=== PATIENT | male | born 1990 | race Caucasian/White ===

== ENCOUNTER 2021-08-05 06:04 | Emergency (ER) | payer OTHER, MEDICAID, SELFPAY ==
[2021-08-05 06:12] VITALS: BP 135/86; PULSE 127; RESP 16; TEMP 36.8; O2SAT 100
--- NOTE | 2021-08-05 06:15 | DI.RAD.S_ITS ---
PROCEDURE: XR CHEST 1V INDICATIONS: chest pain TECHNIQUE: One view of the chest was acquired. COMPARISON: [facility], , CHEST 2 VIEW, 02/25/2009, 21:33. FINDINGS: Surgical changes and devices: None. Lungs and pleura: Lungs are clear. No pleural effusions or pneumothorax. Mediastinum: Mediastinal contours appear normal. Heart size is normal. Bones and chest wall: No suspicious bony lesions. Overlying soft tissues appear unremarkable. IMPRESSION: No acute cardiopulmonary disease. No significant discrepancy with the machinist 2nd shift radiology preliminary report. Dictated by: Precious Pat M.D. on 08/05/2021 at 7:37 Approved by: Precious Pat M.D. on 08/05/2021 at 7:38
[2021-08-05 06:20] VITALS: PULSE 119; RESP 21; O2SAT 100
[2021-08-05 06:30] VITALS: PULSE 99; O2SAT 99
--- NOTE | 2021-08-05 06:35 | PC.NURSE ---
Patient is anxious about being in ER. Reports Meth use, intermittent sharp chest pain over last 6 months. Patient states pain will make him double over, sometimes short sometimes last longer.
--- NOTE | 2021-08-05 06:37 | PC.NURSE ---
While setting up and speaking with patient about starting an IV, patient became increasingly anxious, pale, clammy and states I am going to pass out I hate needles, I can't do it Patient heart rate went from sinus tach 120's down to 45. Patient remained alert, MD at bedside, discussing plan of care. Declining IV at this time
--- NOTE | 2021-08-05 06:38 | ED_ITS ---
HPI - Chest Pain General Chief Complaint: Chest Pain Stated Complaint: chest pain Time Seen by Provider: 08/05/21 06:11 Source: patient Mode of arrival: Ambulatory History of Present Illness HPI narrative: 30-year-old gentleman with history of methamphetamine use disorder getting more concerning over the last year. No other significant medical issues. His reports that he will frequently have episodes of severe chest pain after using methamphetamine sometimes about enough that he is doubled over in pain. 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 Today he smoked and again experience the severe chest pain and presented to the emergency department. Initially describing sharp stabbing pain through the center of his chest that has completely resolved by the time he is in a room and EKG is obtained. He is tachycardic, mildly diaphoretic, dilated pupils anxious but cooperative. He denies any recent fevers, cough, dyspnea or orthopnea, vomitin g, diarrhea, abdominal pain. He notes that he has been using more methamphetamine is having more anxiety and more frequent episodes of these chest pains. Related Data Allergies Allergy/AdvReac Type Severity Reaction Status Date / Time bupropion [From Wellbutrin] Allergy Rash Verified 08/05/21 06:14 Review of Systems Review of Systems Narrative: Remainder of complete review of systems is otherwise unremarkable except for that included in the HPI. Patient History Medical History (Updated 08/05/21 @ 07:05 by Hien Gill MD) Methamphetamine use disorder, severe Social History Smoking Status: Current every day smoker Smoking Status: Current every day smoker Substance Use Type: methamphetamine Exam Narrative Exam Narrative: General: Moderately ill-appearing, diaphoretic with the thought of an IV start, Well-nourished well-developed HEENT: Moist mucous membranes, erythematous posterior pharynx without exudate, injected sclera with reactive pupils, Respiratory: Lungs are clear to auscultation, no wheezing no rales no rhonchi. Full and symmetrical air movement Cardiac: Tachycardic but otherwise Regular rate and rhythm no murmurs no bruits Abdomen: Soft, nontender, good bowel tones, no flank pain Skin: Pale and diaphoretic Neurologic: Grossly neurologically intact with no obvious asymmetries or abnormalities Extremities: No trauma, well perfused Psych: Acutely intoxicated, anxious, poor eye contact Significant vasovagal reaction with the thought of blood draw/IV start Initial Vital Signs Initial Vital Signs: Vital Signs Temperature 98.3 F 08/05/21 06:12 Pulse Rate 127 H 08/05/21 06:12 Respiratory Rate 16 08/05/21 06:12 Blood Pressure 135/86 08/05/21 06:12 Pulse Oximetry 100 08/05/21 06:12 Course Orders Ordered: ED Orders 08/05/21 06:15 XR chest 1V Stat Complete Blood Count AUTO DIFF Stat Comprehensive Metabolic Panel Stat Lipase Stat Troponin & CK Cardiac Panel Stat EKG-12 Lead Stat Vital Signs Vital signs: Vital Signs - 8 hr 08/05/21 06:12 Temperature 98.3 F Pulse Rate 127 H Respiratory Rate 16 Blood Pressure 135/86 Pulse Oximetry 100 MDM - Chest Pain MDM Narrative Medical decision making narrative: 30-year-old gentleman with a long history of methamphetamine use worsening over the last 2 years. Brought in by a friend for further evaluation however evaluation is limited by his absolute and utter phobia of needles. Quite literally has a vasovagal reaction drops his heart rate to 50 and becomes profusely diaphoretic as a nurse simply sits down begins to prepare the IV supplies. EKG shows tachycardia but no acute ischemic changes. Chest x-ray is unremarkable without evidence of significant cardiomegaly or pneumothorax. We had a long discussion regarding those 2 findings and the fact that he is young enough and still healthy enough that stopping smoking will be of benefit and that he will be able to get his life back on track. The friend that is with him is already done quite a bit of research into treatment centers. Most them at this point require simply showing up for an initial evaluation and he has been unwilling to do that. After discussion he actually is much more willing to consider. He clearly understands the risks including associated with continued methamphetamine use. Discharge Plan Departure Patient Disposition: Home Clinical Impression: Methamphetamine use disorder, severe, Chest pain Instructions: Substance Use Disorder Activity Restrictions/Additional Instructions: I am glad you came in this morning Your EKG does not show an acute heart attack and your chest x-ray shows a normal-sized heart and lungs that are fully inflated without any significant abnormalities You are doing significant damage to your heart with your continued methamphetamine use. You are still young enough and healthy enough at this time that stopping using will get you back to a useful, healthy and reasonable life. If you do continue to use, you will . Addiction disorders are chronic progressive diseases that end in . Getting into a treatment program and getting away from methamphetamine is something you are absolutely capable of doing. Please let your friend help you and please choose to jump through the hoops that need to be jumped through to get to a treatment program. You can get your life back.
[2021-08-05 07:00] VITALS: PULSE 108; O2SAT 99
[2021-08-05 07:28] VITALS: BP 122/78; PULSE 100; RESP 18; O2SAT 100
== END 2021-08-05 07:33 | disposition home or self-care (01) ==
PROVIDERS: Emergency Provider Emergency Medicine
DX: R07.9 Chest pain, unspecified (principal); F15.90 Other stimulant use, unspecified, uncomplicated; R00.0 Tachycardia, unspecified
CPT/HCPCS: 71045; 93005; 93010; 99281; 99284

== ENCOUNTER 2023-04-03 19:22 | Emergency (ER) | payer OTHER, MEDICAID, SELFPAY ==
--- NOTE | 2023-04-03 19:37 | DI.RAD.S_ITS ---
PROCEDURE: XR ANKLE RT MIN 3V INDICATIONS: injury TECHNIQUE: 3 views of the ankle were acquired. COMPARISON: [facility], , ANKLE 3 VIEWS RIGHT, 03/30/2008, 11:13. FINDINGS: Bones: No fractures or dislocations. Ankle mortise is normally aligned. No suspicious bony lesions. Soft tissues: Moderate anterior tibiotalar joint effusion. Achilles tendon appears normal. IMPRESSION: Moderate tibiotalar joint effusion without underlying fracture or dislocation. If there are persistent symptoms or clinical suspicion for pathology, then repeat radiographs or advanced imaging (CT or MRI) may be considered for further evaluation. Dictated by: Garrett Joshi M.D. on 04/03/2023 at 21:09 Approved by: Garrett Joshi M.D. on 04/03/2023 at 21:11
[2023-04-03 19:38] VITALS: BP 133/77; PULSE 92; RESP 18; TEMP 36.6; O2SAT 100; BMI 20.9
--- NOTE | 2023-04-03 21:57 | ED.LOWEXIN ---
HPI - Extremity Injury (Lower) General Chief Complaint: Extremity Injury, Lower Stated Complaint: R ankle inj Time Seen by Provider: 04/03/23 20:03 Source: patient Mode of arrival: Wheelchair History of Present Illness HPI Narrative: 32-year-old male who is here for right ankle injury. 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 States he heard a pop. Has had difficulty walking since then. Does have swelling to his ankle. Is having some numbness to his foot. Related Data Previous Rx's Medication Instructions Recorded amoxicillin 875 mg-potassium 1 tab PO BID #20 tabs 01/29/23 clavulanate 125 mg tablet doxycycline hyclate 100 mg capsule 100 mg PO BID #20 caps 01/29/23 guaifenesin 600 mg tablet, 1,200 mg PO BID #30 tabs 01/29/23 extended release 12 hr nicotine 14 mg/24 hr daily 1 patch transdermal DAILY #14 ea 01/29/23 transdermal patch (Nicoderm CQ) nicotine 21 mg/24 hr daily 1 patch transdermal DAILY #28 ea 01/29/23 transdermal patch (Nicoderm CQ) nicotine 7 mg/24 hr daily 1 patch transdermal Q24H #14 ea 01/29/23 transdermal patch (Nicoderm CQ) Allergies Allergy/AdvReac Type Severity Reaction Status Date / Time bupropion [From Wellbutrin] Allergy Rash Verified 08/05/21 06:14 Review of Systems Constitutional Constitutional: Reports system reviewed and no additional complaints, except as documented Musculoskeletal Musculoskeletal: Reports system reviewed and no additional complaints, except as documented Integumentary/Breasts Skin/Breast: Reports system reviewed and no additional complaints, except as documented Neurologic Neurologic: Reports system reviewed and no additional complaints, except as documented Patient History Medical History Anxiety Carpal tunnel syndrome Eczema Methamphetamine use disorder, severe Restless leg syndrome Shoulder pain Social History Smoking Status: Current every day smoker Smoking Status: Current every day smoker Substance Use Type: methamphetamine Exam Initial Vital Signs Initial Vital Signs: Vital Signs Temperature 98 F 04/03/23 19:38 Pulse Rate 92 H 04/03/23 19:38 Respiratory Rate 18 04/03/23 19:38 Blood Pressure 133/77 04/03/23 19:38 Pulse Oximetry 100 04/03/23 19:38 Oxygen Delivery Method Room Air 04/03/23 19:38 Cardio Pulses: dorsalis pedis present on the right Skin General: no rashes or lesions noted Neuro Other: Reports decreased sensation to the dorsum of his right foot Extrem Other: Patient has swelling to his lateral malleolus. Tenderness to his lateral malleolus in his medial malleolus. No tenderness of the Achilles tendon. No tenderness of the base of the 5th metatarsal. Procedures Orthopedic Splinting/Casting Injury #1: Side: right Lower Extremity Injury Location: ankle Lower Extremity Immobilizer: Brenden wrap Post splinting neuro exam: no change Post splinting vascular exam: no change Placed by: Nursing Course Orders Ordered: ED Orders 04/03/23 19:37 XR ankle RT min 3V Stat Vital Signs Vital signs: Vital Signs - 8 hr 04/03/23 19:38 04/03/23 22:13 Temperature 98 F Pulse Rate 92 H 74 Respiratory Rate 18 Blood Pressure 133/77 126/69 Pulse Oximetry 100 100 Oxygen Delivery Method Room Air Room Air [facility] - Extremity Injury (Lower) Imaging Data Extremity x-ray #1: Radiologist's Impression: PROCEDURE:? XR ANKLE RT MIN 3V ? INDICATIONS:? injury ? TECHNIQUE:? 3 views of the ankle were acquired.? ? COMPARISON:? [facility], , ANKLE 3 VIEWS RIGHT, 03/30/2008, 11:13. ? FINDINGS:? ? Bones:? No fractures or dislocations.? Ankle mortise is normally aligned.? No suspicious bony lesions.? ? Soft tissues:? Moderate anterior tibiotalar joint effusion.? Achilles tendon appears normal.? ? ? IMPRESSION:? Moderate tibiotalar joint effusion without underlying fracture or dislocation. If there are persistent symptoms or clinical suspicion for pathology, then repeat radiographs or advanced imaging (CT or MRI) may be considered for further evaluation. [facility] Narrative Medical decision making narrative: No fractures or dislocations noted on the x-rays. I do suspect that the decreased sensation is because of the swelling. Had a discussion with him regarding this. He was given an Brenden bandage and also crutches. He can walk on his leg as tolerated. No fevers. We did discuss keeping his leg elevated. Discussed bruising that he could potentially have. He was given the expected course of treatment over the next week or so. Was given return precautions. He expressed understanding and agreement. Discharge Plan Departure Patient Disposition: Home Clinical Impression: Ankle sprain Instructions: DI for Ankle Sprain, How To Perform RICE (Rest, Ice, Compress, Elevate), How to Apply an Elastic Wrap on Ankle Activity Restrictions/Additional Instructions: There were no fractures on the x-ray. This means that you can walk on your foot/ankle as tolerated. You can use the crutches as needed. Contact your primary doctor for a follow-up. Return to the emergency department for new or worsening symptoms. You can take Tylenol or ibuprofen for any discomfort. Prescriptions: No Action nicotine [Nicoderm CQ] 21 mg/24 hr patch 24 hour 1 patch transdermal DAILY Qty: 28 1RF Rx Instructions: Apply daily for 6 weeks then decrease to lower dose nicotine [Nicoderm CQ] 14 mg/24 hr patch 24 hour 1 patch transdermal DAILY Qty: 14 0RF Rx Instructions: Apply daily x 2 weeks then reduce to 7mg dose nicotine [Nicoderm CQ] 7 mg/24 hr patch 24 hour 1 patch transdermal Q24H Qty: 14 0RF Rx Instructions: Apply daily for 1-2 weeks guaifenesin 600 mg tablet extended release 12hr 1,200 mg PO BID Qty: 30 0RF Rx Instructions: Max 4 tabs per day amoxicillin-pot clavulanate 875-125 mg tablet 1 tab PO BID Qty: 20 0RF doxycycline hyclate 100 mg capsule 100 mg PO BID Qty: 20 0RF Referrals: Luisa Larkin PA-C [Primary Care Provider] - Stand Alone Forms: Patient Portal/API, Work Release Note
[2023-04-03 22:13] VITALS: BP 126/69; PULSE 74; O2SAT 100
== END 2023-04-03 22:15 | disposition home or self-care (01) ==
PROVIDERS: Emergency Provider Emergency Medicine; PCP Physician Assistant
DX: S93.491A Sprain of other ligament of right ankle, initial encounter (principal); X50.1XXA Overexertion from prolonged static or awkward postures, initial encounter; Y93.89 Activity, other specified
CPT/HCPCS: 73610; 99282

== ENCOUNTER 2023-10-06 18:04 | Emergency (ER) | payer OTHER, MEDICAID, SELFPAY ==
[2023-10-06 18:15] VITALS: BP 133/85; PULSE 114; RESP 22; TEMP 37.1; O2SAT 99; BMI 22.2
--- NOTE | 2023-10-06 18:19 | DI.RAD.S_ITS ---
PROCEDURE: XR RIBS LT MIN 3V W CXR1V INDICATIONS: fall/pain TECHNIQUE: 2 views of the ribs were acquired, along with a single view chest. COMPARISON: None. FINDINGS: Surgical changes and devices: None. Bones and chest wall: No fractures or dislocations. No suspicious bony lesions. Overlying soft tissues appear unremarkable. Lungs and pleura: No pleural effusions or pneumothorax. Lungs appear clear. Mediastinum: Mediastinal contours appear normal. Heart size is normal. IMPRESSION: No displaced rib fracture or pneumothorax. Dictated by: Yung Stewart M.D. on 10/06/2023 at 18:50 Approved by: Yung Stewart M.D. on 10/06/2023 at 18:50
[2023-10-06] MEDS: ACETAMINOPHEN 325 MG TABLET 975 MG PO (18:22)
== END 2023-10-06 19:40 | disposition left against medical advice (07) ==
PROVIDERS: Emergency Provider Emergency Medicine; PCP Physician Assistant
DX: R07.81 Pleurodynia (principal); W19.XXXA Unspecified fall, initial encounter
CPT/HCPCS: 71101; 99283

== ENCOUNTER 2024-10-22 03:00 | Observation (INO) | payer OTHER, SELFPAY ==
[2024-10-22] VITALS (12 sets, daily range): BP systolic 98–131; BP diastolic 54–77; PULSE 68–110; RESP 14–20; TEMP 36.3–36.9; O2SAT 94–100
--- NOTE | 2024-10-22 03:24 | DI.CT.S_ITS ---
PROCEDURE: CT ABDOMEN PELVIS W CON INDICATIONS: LUQ pain TECHNIQUE: After the administration of intravenous contrast, axial sections acquired from the lung bases to the pubic symphysis. Coronal and sagittal reformats were performed. For radiation dose reduction, the following was used: automated exposure control, adjustment of mA and/or kV according to patient size. COMPARISON: None. FINDINGS: Image quality: Diagnostic. Lower Chest: No significant findings. ABDOMEN: Liver: No solid mass. Gallbladder: No radiopaque gallstones or wall thickening. Biliary ducts: No biliary dilation. Pancreas: No ductal dilation. Spleen: Size is within normal limits. Adrenal Glands: No adrenal nodules. Kidneys and Ureters: No hydronephrosis. No solid mass. No complex renal cystic lesion which requires follow up. Stomach and Bowel: Fluid-filled nondilated loops of small bowel. Normal colonic caliber, without significant wall thickening. Large stool burden. Normal appendix. Peritoneum: No abnormal intraperitoneal fluid. No free air. Ventral Wall: No significant ventral hernia. Abdominal Nodes: No retroperitoneal or mesenteric adenopathy by size criteria. Vessels: Aorta and inferior vena cava are normal in size. PELVIS: Pelvic Organs: Unremarkable. Bladder: No bladder wall thickening, accounting for underdistention. Pelvic Nodes: No enlarged lymph nodes. Miscellaneous: No inguinal hernias are seen. Bones: No aggressive osseous abnormality. IMPRESSION: 1. Large stool burden throughout the colon, correlate for constipation. 2. Nondilated fluid-filled loops of small bowel, nonspecific and may represent enteritis. Findings are concordant with preliminary interpretation provided by [facility]. Dictated by: Yung Stewart M.D. on 10/22/2024 at 7:31 Approved by: Yung Stewart M.D. on 10/22/2024 at 7:34
--- NOTE | 2024-10-22 03:27 | ED_ITS ---
HPI - Abdominal Pain General Chief Complaint: Abdominal Pain Stated Complaint: Lower abdominal pain x 4 days Time Seen by Provider: 10/22/24 03:18 Source: patient Mode of arrival: Ambulatory History of Present Illness HPI narrative: 33-year-old male with 4 days duration left upper quadrant abdominal pain, no history of trauma, no prior history of kidney stones, no dysuria or frequency of urination. No history of PUD, pancreatitis, colitis, diverticulitis, urinary tract infections, kidney stones. Denies cough shortness of breath. No skin rash changes. He has not tried any uejw-qoe-bmurvya medications. Denies use of alcohol. No black stools or red stools. Related Data Previous Rx's Medication Instructions Recorded amoxicillin 875 mg-potassium 1 tab PO BID #20 tabs 01/29/23 clavulanate 125 mg tablet doxycycline hyclate 100 mg capsule 100 mg PO BID #20 caps 01/29/23 guaifenesin 600 mg tablet, 1,200 mg (2 x 600 mg) PO BID #30 01/29/23 extended release 12 hr tabs nicotine 14 mg/24 hr daily 1 patch transdermal DAILY #14 ea 01/29/23 transdermal patch (Nicoderm CQ) nicotine 21 mg/24 hr daily 1 patch transdermal DAILY #28 ea 01/29/23 transdermal patch (Nicoderm CQ) nicotine 7 mg/24 hr daily 1 patch transdermal Q24H #14 ea 01/29/23 transdermal patch (Nicoderm CQ) Allergies Allergy/AdvReac Type Severity Reaction Status Date / Time bupropion [From Wellbutrin] Allergy Rash Verified 08/05/21 06:14 Patient History Medical History Anxiety Carpal tunnel syndrome Eczema Methamphetamine use disorder, severe Restless leg syndrome Shoulder pain Social History Smoking Status: Current every day smoker Smoking Status: Current every day smoker Exam Narrative Exam Narrative: GENERAL: Well-developed patient, in mild distress. HEAD: Atraumatic. Normocephalic. EYES: Pupils equal round and reactive. Extraocular motions intact. No scleral icterus. No injection or drainage. ENT: Nose without bleeding, purulent drainage. Throat without erythema, tonsillar hypertrophy or exudate. Airway patent. NECK: Trachea midline. Non tender CARDIOVASCULAR: Regular rate and rhythm without murmurs, gallops, or rubs. RESPIRATORY: Clear to auscultation. Breath sounds equal bilaterally. No wheezes, rales, or rhonchi. GASTROINTESTINAL: Abdomen soft, nondistended, mild tenderness left upper quadrant. No CVA region tenderness bilaterally. EXTREMITIES: No edema or joint tenderness. BACK: Nontender without deformity or crepitance. No flank tenderness. NEURO: AOx3. Motor functions grossly nonfocal SKIN: No rash or erythema of visible areas Initial Vital Signs Initial Vital Signs: Vital Signs Temperature 98.5 F 10/22/24 03:08 Pulse Rate 78 10/22/24 03:08 Respiratory Rate 17 10/22/24 03:08 Blood Pressure 131/70 10/22/24 03:08 Pulse Oximetry 100 10/22/24 03:08 Oxygen Delivery Method Room Air 10/22/24 03:08 Course Orders Ordered: ED Orders 10/22/24 03:24 CT abdomen pelvis w con Stat 10/22/24 03:30 Ammonia (NH3) Stat Complete Blood Count AUTO DIFF Stat Comprehensive Metabolic Panel Stat Ethanol (ETOH) Stat Lipase Stat Lipase Stat 10/22/24 04:55 Urinalysis and Microscopic Stat 10/22/24 05:45 Education, smoking cessation ONGOING 10/22/24 06:05 Complete Blood Count AUTO DIFF DAILY Comprehensive Metabolic Panel DAILY Acetaminophen (Acetaminophen 325 Mg Tablet) 650 mg PO Q6H PRN PRN Reason: Fever/Mild Pain (1-3) Hydrocodone Bitart/Acetaminophen (Hydrocodone/Acet 5/325 Tablet) 1 tab PO Q4H PRN PRN Reason: Pain, Moderate (4-6) Hydromorphone HCl (Hydromorphone 0.5 Mg Inj) 0.5 mg IV Q2H PRN PRN Reason: Pain, Severe (7-10) Sodium Chloride (Normal Saline 0.9%) 1,000 mls @ 150 mls/hr IV CONT KAMERON Naloxone HCl (Naloxone 0.4 Mg/Ml Vial) 0.2 mg IV Q2MIN PRN PRN Reason: Opiate Reversal Ondansetron HCl (Ondansetron 4 Mg/2 Ml Inj) 4 mg IV Q8HR PRN PRN Reason: Nausea And Vomiting Discontinued Medications Hydromorphone HCl (Hydromorphone 0.5 Mg Inj) 0.5 mg IV NOW ONE Stop: 10/22/24 03:26 Last Admin: 10/22/24 03:35 Dose: Not Given Documented By: CONCHA Ketorolac Tromethamine (Ketorolac 30 Mg/Ml Vial) 15 mg IV NOW ONE Stop: 10/22/24 03:36 Last Admin: 10/22/24 03:39 Dose: 15 mg Documented By: CONCHA Ondansetron HCl (Ondansetron 4 Mg/2 Ml Inj) 4 mg IV NOW ONE Stop: 10/22/24 03:26 Last Admin: 10/22/24 03:31 Dose: 4 mg Documented By: CONCHA Vital Signs Vital signs: Vital Signs - 8 hr 10/22/24 03:08 10/22/24 03:40 10/22/24 03:56 Temperature 98.5 F Pulse Rate 78 70 Respiratory Rate 17 Blood Pressure 131/70 98/72 Pulse Oximetry 100 94 Oxygen Delivery Method Room Air 10/22/24 03:56 10/22/24 04:00 10/22/24 04:00 Temperature Pulse Rate 110 H 91 H Respiratory Rate Blood Pressure 100/75 Pulse Oximetry 96 99 Oxygen Delivery Method 10/22/24 04:30 10/22/24 04:30 10/22/24 05:01 Temperature Pulse Rate 97 H 106 H Respiratory Rate Blood Pressure 100/69 Pulse Oximetry 98 98 Oxygen Delivery Method 10/22/24 05:30 Temperature Pulse Rate 94 H Respiratory Rate Blood Pressure Pulse Oximetry 99 Oxygen Delivery Method MDM - Abdominal Pain Lab Data Attestation: I reviewed the patient's lab results. Lab results narrative: White blood cell count 5900, hemoglobin 14.3, platelets [id number]. Basic metabolic panel unremarkable, glucose 107 noted. Lipase elevated 2864. Liver functions normal. Repeat lipase 3137 further elevated 10/22/24 06:05 10/22/24 03:30 Labs: Lab Results 10/22/24 10/22/24 10/22/24 Range/Units 03:30 03:30 04:55 WBC 5.9 (4.5-11.0) X10^3/uL RBC 4.67 (4.5-5.9) X10^6/uL Hgb 14.3 (13.5-17.5) g/dL Hct 41.0 (41-53) % MCV 87.8 (80-100) fL MCH 30.7 (26-34) PG MCHC 35.0 (30-36) % RDW 12.8 (11.6-14.8) % Plt Count 234 (150-400) X10^3/uL Neut % (Auto) 61.3 (50-75) % Lymph % (Auto) 27.9 (25-40) % [place] % (Auto) 9.6 (3-14) % Eos % (Auto) 0.9 L (2-4) % Baso % (Auto) 0.3 (0-2) % Neut # (Auto) 3600 (4185-3134) /uL Lymph # (Auto) 1600 (8143-8662) /uL [place] # (Auto) 600 (0-900) /uL Eos # (Auto) 100 (0-450) /uL Baso # (Auto) 0 (0-100) /uL Sodium 140 (137-145) mmol/L Potassium 3.7 (3.4-5.1) mmol/L Chloride 105 (98-107) mmol/L Carbon Dioxide 29 (22-32) mmol/L BUN 15 (9-20) mg/dL Creatinine 0.66 (0.66-1.25) mg/dL Estimated GFR > 60 (>60) mL/min BUN/Creatinine Ratio 22.7 H (6-22) Glucose 107 H (70-100) mg/dL Calcium 9.0 (8.4-10.2) mg/dL Total Bilirubin 0.2 (0.2-1.3) mg/dL AST 30 (17-59) IU/L ALT 26 (<50) IU/L Alkaline Phosphatase 82 (38-126) U/L Ammonia 20 (9-30) umol/L Total Protein 7.1 (6.3-8.2) g/dL Albumin 4.2 (3.5-5.0) g/dL Globulin 2.9 (1.7-4.1) g/dL Albumin/Globulin Ratio 1.4 (1.0-2.8) Lipase 2864 H 3137 H (23-300) U/L Urine Color Yellow Urine Appearance Clear Urine pH 8.0 (4.5-8.0) Ur Specific [place] 1.010 (1.000-1.035) Urine Protein Negative (Negative) Urine Glucose (UA) Negative (Negative) g/dL Urine Ketones Negative (NEGATIVE) Urine Occult Blood Negative (Negative) Urine Nitrate Negative (Negative) Urine Bilirubin Negative (NEGATIVE) Urine Urobilinogen 0.2 (0.2) E.U./dL Ur Leukocyte Esterase Negative (NEGATIVE) Urine RBC None seen (0-5/HPF) Urine WBC None seen (0-5/HPF) Ur Squamous Epith Cells None seen (0-5/HPF) Urine Bacteria None seen (None) Ur Culture Indicated? Cult not indicated Vol Urine Centrifuged 10ml (spun) Ethyl Alcohol < 10 ( - 10) mg/dL MDM Narrative Medical decision making narrative: 33-year-old male with 4 days duration left upper quadrant abdominal pain, no trauma, mild tenderness on examination. No CVA tenderness. Afebrile, sirs screen negative. DDx consider ureteral stone, pyelonephritis, UTI, colitis, diverticulitis, bowel obstruction, hernia, perforated viscus, PUD, pancreatitis, musculoskeletal, constipation, other. Labs pending. IV Toradol. White blood cell count not elevated, liver functions normal, however lipase is quite high at 2864. Keep NPO. CT abdomen and pelvis with IV contrast. Impressions: ?[id number]-[id number] amount of stool throughout the colon with likely superimposed mild enteritis. No findings to suggest obstruction or perforation.In text portions pancreas listed amongst ?unremarkable? solid organs. See radiology report. Lipase anemia markedly elevated, more so than would be expected with vomiting which has not been predominant. Consider admission, and consider waiting for over-read of daytime radiology services. Repeat serum lipase 3137 confirmed elevated, in fact further elevated. Will contact hospitalist. [id number], case discussed with hospitalist Dr. Tam who accepts patient for admission to inpatient Discharge Plan Departure Patient Disposition: Admitted As Inpatient Clinical Impression: Pancreatitis Admit Date/Time: 10/22/24 05:45 Admit Provider: Tuan Tam
[2024-10-22] MEDS: ONDANSETRON 4 MG/2 ML INJ IV ×3 (03:31→17:39)
[2024-10-22] MEDS: KETOROLAC 30 MG/ML VIAL 15 MG IV (03:39)
[2024-10-22 03:45] LABS: Add Manual Diff / Slide Review NO; Basophils Absolute Auto 0 /uL (0-100); Basophils Percent Auto 0.3 % (0-2); Eosinophils Absolute Auto 100 /uL (0-450); Eosinophils Percent Auto 0.9 % (2-4); Hemoglobin 14.3 g/dL (13.5-17.5); Lymphocytes Absolute Auto 1600 /uL (1100-4500); Lymphocytes Percent Auto 27.9 % (25-40); Mean Corpuscular Hemoglobin 30.7 PG (26-34); Mean Corpuscular Volume 87.8 fL (80-100); Monocytes Absolute Auto 600 /uL (0-900); Monocytes Percent Auto 9.6 % (3-14); Neutrophils Absolute Auto 3600 /uL (1500-7000); Neutrophils Percent Auto 61.3 % (50-75); Platelet Count 234 X10^3/uL (150-400); Red Blood Cell Count 4.67 X10^6/uL (4.5-5.9); Red Cell Distribution Width 12.8 % (11.6-14.8); White Blood Cell Count 5.9 X10^3/uL (4.5-11.0)
--- NOTE | 2024-10-22 03:46 | PC.NURSE ---
to CT per wc
[2024-10-22 03:54] LABS: Alanine Aminotransferase 26 IU/L (<50); Albumin 4.2 g/dL (3.5-5.0); Albumin Globulin Ratio 1.4 (1.0-2.8); Alkaline Phosphatase 82 U/L (38-126); Ammonia (NH3) 20 umol/L (9-30); Aspartate Aminotransferase 30 IU/L (17-59); BUN Creatinine Ratio 22.7 (6-22); Bilirubin Total 0.2 mg/dL (0.2-1.3); Blood Urea Nitrogen 15 mg/dL (9-20); Carbon Dioxide 29 mmol/L (22-32); Chloride 105 mmol/L (98-107); Estimated Glomerular Filt Rate > 60 mL/min (>60); Globulin 2.9 g/dL (1.7-4.1); Glucose 107 mg/dL (70-100); HEMOLYSIS < 15 (0-50); Potassium 3.7 mmol/L (3.4-5.1); Sodium 140 mmol/L (137-145); Total Protein 7.1 g/dL (6.3-8.2)
[2024-10-22 04:10] LABS: Lipase 2864 U/L (23-300)
[2024-10-22 05:04] LABS: Appearance Urine UA CLEAR; Bilirubin Urine UA NEGATIVE (NEGATIVE); Color Urine UA YELLOW; Glucose Urine UA NEGATIVE (Negative); Ketones Urine UA NEGATIVE (NEGATIVE); Leukocyte Esterase Urine UA NEGATIVE (NEGATIVE); Nitrite Urine UA NEGATIVE (Negative); Occult Blood Urine UA NEGATIVE (Negative); Protein Urine UA NEGATIVE (Negative); Urobilinogen Urine UA 0.2 E.U./dL (0.2)
[2024-10-22 05:08] LABS: Ethanol (ETOH) < 10 mg/dL
[2024-10-22 05:16] LABS: Lipase 3137 U/L (23-300)
[2024-10-22 05:19] LABS: Bacteria Urine None Seen; RBC Urine None Seen (0-5/HPF); Squamous Epithelial Cell Urine None Seen (0-5/HPF); Urine Volume 10mL (spun); WBC Urine None Seen (0-5/HPF)
[2024-10-22 05:20] LABS: Culture Indicated Urine Cult Not Indicated
[2024-10-22 06:10] LABS: Add Manual Diff / Slide Review NO; Basophils Absolute Auto 0 /uL (0-100); Basophils Percent Auto 0.5 % (0-2); Eosinophils Absolute Auto 100 /uL (0-450); Eosinophils Percent Auto 0.7 % (2-4); Hematocrit 41.1 % (41-53); Hemoglobin 14.5 g/dL (13.5-17.5); Lymphocytes Absolute Auto 1200 /uL (1100-4500); Lymphocytes Percent Auto 16.5 % (25-40); Mean Corpuscular HGB Conc 35.2 % (30-36); Mean Corpuscular Hemoglobin 30.7 PG (26-34); Mean Corpuscular Volume 87.3 fL (80-100); Monocytes Absolute Auto 400 /uL (0-900); Monocytes Percent Auto 5.2 % (3-14); Neutrophils Absolute Auto 5500 /uL (1500-7000); Neutrophils Percent Auto 77.1 % (50-75); Platelet Count 233 X10^3/uL (150-400); Red Blood Cell Count 4.71 X10^6/uL (4.5-5.9); Red Cell Distribution Width 12.8 % (11.6-14.8); White Blood Cell Count 7.1 X10^3/uL (4.5-11.0)
[2024-10-22 06:20] LABS: Alanine Aminotransferase 27 IU/L (<50); Albumin 4.1 g/dL (3.5-5.0); Albumin Globulin Ratio 1.4 (1.0-2.8); Alkaline Phosphatase 77 U/L (38-126); Aspartate Aminotransferase 30 IU/L (17-59); BUN Creatinine Ratio 22.4 (6-22); Bilirubin Total 0.2 mg/dL (0.2-1.3); Blood Urea Nitrogen 13 mg/dL (9-20); Calcium 8.7 mg/dL (8.4-10.2); Carbon Dioxide 26 mmol/L (22-32); Chloride 107 mmol/L (98-107); Estimated Glomerular Filt Rate > 60 mL/min (>60); Glucose 102 mg/dL (70-100); HEMOLYSIS 16 (0-50); Sodium 139 mmol/L (137-145); Total Protein 7.1 g/dL (6.3-8.2)
[2024-10-22] MEDS: SODIUM CHLORIDE 0.9% 1,000 ML 150 ML IV (06:40)
--- NOTE | 2024-10-22 06:45 | PM.HP.1 ---
History of Present Illness History of Present Illness Chief complaint: Lower abdominal pain x 4 days Narrative: 33 year old male with no reported past medical history of anxiety, Methamphetamine abuse, tobacco abuse and restless leg syndrome presents with abdominal pain. Per the patients'' report, the patient started to have abdominal pain that started about for days ago. The patient states that his pain was left upper quadrant, sharp and non-radiating. The patient denies any use of alcohol and denies any prior history of gallstones and pancreatitis. The patient also denies any trauma to his abdomen. Denies any fever, chills, dysurria, chest pain, shortness of breath, GIB, diarrhea or coughing. In our ER, the patient was hemodynamically stable. Labs were all benign except for lipast of 2864 and repeat was 3000s. CT scan however does clearly shows signs of acute pancreatitis but rather possible eneteritis. LFTs including bilirubin are normal. The patient was given IVF and IV pain medications. [facility] Medical History Anxiety Carpal tunnel syndrome Eczema Methamphetamine use disorder, severe Restless leg syndrome Shoulder pain Social History household members: significant other and children Smoking Status: Current every day smoker alcohol intake: former Meds Home Medications and Allergies Home Medications Medication Instructions Recorded Confirmed Type amoxicillin 875 mg-potassium 1 tab PO BID #20 tabs 01/29/23 01/29/23 Rx clavulanate 125 mg tablet doxycycline hyclate 100 mg capsule 100 mg PO BID #20 caps 01/29/23 01/29/23 Rx guaifenesin 600 mg tablet, 1,200 mg (2 x 600 mg) PO BID #30 01/29/23 01/29/23 Rx extended release 12 hr tabs nicotine 14 mg/24 hr daily 1 patch transdermal DAILY #14 ea 01/29/23 01/29/23 Rx transdermal patch (Nicoderm CQ) nicotine 21 mg/24 hr daily 1 patch transdermal DAILY #28 ea 01/29/23 01/29/23 Rx transdermal patch (Nicoderm CQ) nicotine 7 mg/24 hr daily 1 patch transdermal Q24H #14 ea 01/29/23 01/29/23 Rx transdermal patch (Nicoderm CQ) Allergies Allergy/AdvReac Type Severity Reaction Status Date / Time bupropion [From Wellbutrin] Allergy Rash Verified 08/05/21 06:14 Review of Systems Review of Systems ROS: Yes All systems reviewed with the patient and are negative except as otherwise documented Exam Vital Signs (past 8 hours): - 10/22/24 03:08 10/22/24 03:40 10/22/24 03:56 Temperature 98.5 F Pulse Rate 78 70 Respiratory Rate 17 Blood Pressure 131/70 98/72 Pulse Oximetry 100 94 Oxygen Delivery Method Room Air 10/22/24 03:56 10/22/24 04:00 10/22/24 04:00 Temperature Pulse Rate 110 H 91 H Respiratory Rate Blood Pressure 100/75 Pulse Oximetry 96 99 Oxygen Delivery Method 10/22/24 04:30 10/22/24 04:30 10/22/24 05:01 Temperature Pulse Rate 97 H 106 H Respiratory Rate Blood Pressure 100/69 Pulse Oximetry 98 98 Oxygen Delivery Method 10/22/24 05:30 10/22/24 06:00 10/22/24 06:01 Temperature Pulse Rate 94 H 68 79 Respiratory Rate Blood Pressure Pulse Oximetry 99 99 99 Oxygen Delivery Method Room Air 10/22/24 06:01 Temperature Pulse Rate Respiratory Rate Blood Pressure 129/65 Pulse Oximetry Oxygen Delivery Method Oxygen Delivery Method Room Air Narrative Exam Narrative: Physical Exam: GENERAL: The patient is not in any acute distressed. Awake and alert. HEENT: Nonicteric sclerae, PERRLA, EOMI. Oropharynx clear. Moist mucous membranes. Conjunctivae appear well perfused. HEART: Regular rate and rhythm without murmurs. No lower extremities edema. LUNGS: Clear to auscultation bilaterally. No wheezing, crackles or rhonchi ABDOMEN: Soft, positive bowel sounds, nontender. SKIN: No rash, no excessive bruising, petechiae, or purpura. NEUROLOGIC: AxO x 3. Cranial nerves II-XII intact without motor/sensory deficit. Objective Labs 10/22/24 06:05 10/22/24 06:05 Labs: Laboratory Results - last 24 hr 10/22/24 10/22/24 10/22/24 03:30 03:30 04:55 WBC 5.9 RBC 4.67 Hgb 14.3 Hct 41.0 MCV 87.8 MCH 30.7 MCHC 35.0 RDW 12.8 Plt Count 234 Neut % (Auto) 61.3 Lymph % (Auto) 27.9 [place] % (Auto) 9.6 Eos % (Auto) 0.9 L Baso % (Auto) 0.3 Neut # (Auto) 3600 Lymph # (Auto) 1600 [place] # (Auto) 600 Eos # (Auto) 100 Baso # (Auto) 0 Sodium 140 Potassium 3.7 Chloride 105 Carbon Dioxide 29 BUN 15 Creatinine 0.66 Estimated GFR > 60 BUN/Creatinine Ratio 22.7 H Glucose 107 H Calcium 9.0 Total Bilirubin 0.2 AST 30 ALT 26 Alkaline Phosphatase 82 Ammonia 20 Total Protein 7.1 Albumin 4.2 Globulin 2.9 Albumin/Globulin Ratio 1.4 Lipase 2864 H 3137 H Urine Color Yellow Urine Appearance Clear Urine pH 8.0 Ur Specific [place] 1.010 Urine Protein Negative Urine Glucose (UA) Negative Urine Ketones Negative Urine Occult Blood Negative Urine Nitrate Negative Urine Bilirubin Negative Urine Urobilinogen 0.2 Ur Leukocyte Esterase Negative Urine RBC None seen Urine WBC None seen Ur Squamous Epith Cells None seen Urine Bacteria None seen Ur Culture Indicated? Cult not indicated Vol Urine Centrifuged 10ml (spun) Ethyl Alcohol < 10 10/22/24 06:05 WBC 7.1 RBC 4.71 Hgb 14.5 Hct 41.1 MCV 87.3 MCH 30.7 MCHC 35.2 RDW 12.8 Plt Count 233 Neut % (Auto) 77.1 H Lymph % (Auto) 16.5 L [place] % (Auto) 5.2 Eos % (Auto) 0.7 L Baso % (Auto) 0.5 Neut # (Auto) 5500 Lymph # (Auto) 1200 [place] # (Auto) 400 Eos # (Auto) 100 Baso # (Auto) 0 Sodium 139 Potassium 4.0 Chloride 107 Carbon Dioxide 26 BUN 13 Creatinine 0.58 L Estimated GFR > 60 BUN/Creatinine Ratio 22.4 H Glucose 102 H Calcium 8.7 Total Bilirubin 0.2 AST 30 ALT 27 Alkaline Phosphatase 77 Ammonia Total Protein 7.1 Albumin 4.1 Globulin 3.0 Albumin/Globulin Ratio 1.4 Lipase Urine Color Urine Appearance Urine pH Ur Specific [place] Urine Protein Urine Glucose (UA) Urine Ketones Urine Occult Blood Urine Nitrate Urine Bilirubin Urine Urobilinogen Ur Leukocyte Esterase Urine RBC Urine WBC Ur Squamous Epith Cells Urine Bacteria Ur Culture Indicated? Vol Urine Centrifuged Ethyl Alcohol Assessment & Plan Assessment & Plan narrative: Acute pancreatitis. Admit the patient to medical inpatient. Idiopathic as patient denies any alcohol use, normal LFTs including bilirubin. Not on any medications that can induced pancreatitis. Denies any blunt trauma. NPO. IVF. IV pain medications prn. Dehydration. IVF. Tobacco abuse. Nicotine patch DVT PPx SCDs and ambulation Code status full code Disposition home in 2 days Time-Based Coding :: [TOTAL MINUTES] spent with patient and on the chart (including review of chart, obtaining history, exam, reviewing outside data, placing orders, documenting exam and treatment plan, and counseling patient) on [DATE]. Quality VTE Deep Vein Thrombosis/Pulmonary Embolism Present on Admission: No
[2024-10-22] MEDS: METOCLOPRAMIDE 10 MG/2 ML INJ 5 MG IV (08:42)
[2024-10-22] MEDS: SENNOSIDES 8.6 MG TABLET 17.2 MG PO (08:42)
[2024-10-22] MEDS: BISACODYL 10 MG SUPP PR (08:42)
[2024-10-22] MEDS: MAGNESIUM HYDROXIDE 30 ML UDC PO ×3 (11:18→18:40)
[2024-10-22] MEDS: NICOTINE 21 MG PATCH TOP (13:09)
--- NOTE | 2024-10-22 15:06 | CM.DANOTE ---
Patient is a 33 yo male who was admitted OBS Status on 10/22/24 for Constipation/Dehydration. [facility] and no PCP. EMR was reviewed. Per MD, pt with hx of cigarette smoking and meth use and admitted for severe constipation and ruled out pancreatitis and was given an enema and not yet stable for discharge. Per RN, pt has had a bm and has been ambulating in room independently. JOAO met bedside with pt and explained role and he confirms he lives in [place] in a 5th Wheel RV/camper with his Sig Other and her two kids. Pt is independent at baseline with mobility and does not use DME for ambulation and drives but states he is currently unemployed and does not have established PCP. Pt confirms that he would be appreciative with assistance in getting established with a Male Provider at [facility] for outpt f/u. SW updated TCM group to confirm if they have any male providers accepting PW HO for insurance. Pt denies any identified discharge planning needs and preference is home at discharge and states he will have family or friend to transport at d/c. MACY Nunn Discharge Planning/Care Management CM Discharge Assessment Start: 10/22/24 15:05 Freq: Status: Active Protocol: Document 10/22/24 15:05 BF (Rec: 10/22/24 15:06 BF [id number]) Discharge Planning Assessment Assigned Reconditioning Associate MACY Banegas DPOA/Assigned Designee Name none Advance Directives? No Advance Directives on File No History Provided By Patient,Medical Record Has Patient been admitted in last 30 No days? Prior Living Arrangements Other Comment 5th wheel Trailer; 4 occupants Household Members significant other,children Type of transporation used prior to Drives own vehicle admit Independent with ADL's Yes Is patient alert and oriented? Yes Caregiver for Another Yes: two kids at home Barriers to Discharge Yes Comment Needs PCP established Discharge Plan Home Transportation Arrangement Pt states his family can provide transport at d/c Referrals Initiated Other Additional Comment TCM group to be notified to try to schedule establish care appt with Provider at [facility] Updated in Patient Room with Yes name and ext. # of Reconditioning Associate Review Status In Process Please Provide Date Initial DC 10/22/24 Assessment Was Performed Next Review Type Continued Stay Review
--- NOTE | 2024-10-22 18:44 | PM.PN.1 ---
Subjective Subjective Interval history: 33-year-old male with history of anxiety, methamphetamine abuse now in remission, tobacco dependence, and restless legs syndrome presented with mild left upper quadrant pain. He was found to have an elevated lipase in the 3000 range, but CT scan showed no evidence of pancreatic inflammation. He did have some nausea and dry heaving after arrival to the medical floor. He denied any nausea or vomiting prior to admission. He states he has not had a very good diet recently due to financial difficulties. He reports he typically moves his bowels every day. He has not had any epigastric pain. No pain radiating to his back. CT scan did show a large amount of stool throughout the colon. There was also some evidence of possible enteritis. Exam Vital Signs (past 8 hours): - 10/22/24 12:00 Temperature 97.3 F L Pulse Rate 80 Respiratory Rate 14 Blood Pressure 123/60 Pulse Oximetry 98 Oxygen Flow Rate 0 Oxygen Delivery Method Room Air Oxygen Flow Rate 0 Narrative Exam Narrative: GEN: Alert and oriented x 3, patient was dry heaving on my arrival. HEENT:NC, Face symmetric CHEST: Respiratory excursions symmetric, CTAB CV: Tachycardic with regular rhythm, no M/R/G ABD: Soft, NT/ND, BT present in all 4 quadrants, no organomegaly or masses EXTR: warm, well perfused, no C/C/E SKIN: warm and dry, no rash NEURO: Alert and oriented x 3, nonfocal Objective Labs 10/22/24 06:05 10/22/24 06:05 Labs: Laboratory Results - last 24 hr 10/22/24 10/22/24 10/22/24 03:30 03:30 04:55 WBC 5.9 RBC 4.67 Hgb 14.3 Hct 41.0 MCV 87.8 MCH 30.7 MCHC 35.0 RDW 12.8 Plt Count 234 Neut % (Auto) 61.3 Lymph % (Auto) 27.9 [place] % (Auto) 9.6 Eos % (Auto) 0.9 L Baso % (Auto) 0.3 Neut # (Auto) 3600 Lymph # (Auto) 1600 [place] # (Auto) 600 Eos # (Auto) 100 Baso # (Auto) 0 Sodium 140 Potassium 3.7 Chloride 105 Carbon Dioxide 29 BUN 15 Creatinine 0.66 Estimated GFR > 60 BUN/Creatinine Ratio 22.7 H Glucose 107 H Calcium 9.0 Total Bilirubin 0.2 AST 30 ALT 26 Alkaline Phosphatase 82 Ammonia 20 Total Protein 7.1 Albumin 4.2 Globulin 2.9 Albumin/Globulin Ratio 1.4 Lipase 2864 H 3137 H Urine Color Yellow Urine Appearance Clear Urine pH 8.0 Ur Specific [place] 1.010 Urine Protein Negative Urine Glucose (UA) Negative Urine Ketones Negative Urine Occult Blood Negative Urine Nitrate Negative Urine Bilirubin Negative Urine Urobilinogen 0.2 Ur Leukocyte Esterase Negative Urine RBC None seen Urine WBC None seen Ur Squamous Epith Cells None seen Urine Bacteria None seen Ur Culture Indicated? Cult not indicated Vol Urine Centrifuged 10ml (spun) Ethyl Alcohol < 10 10/22/24 06:05 WBC 7.1 RBC 4.71 Hgb 14.5 Hct 41.1 MCV 87.3 MCH 30.7 MCHC 35.2 RDW 12.8 Plt Count 233 Neut % (Auto) 77.1 H Lymph % (Auto) 16.5 L [place] % (Auto) 5.2 Eos % (Auto) 0.7 L Baso % (Auto) 0.5 Neut # (Auto) 5500 Lymph # (Auto) 1200 [place] # (Auto) 400 Eos # (Auto) 100 Baso # (Auto) 0 Sodium 139 Potassium 4.0 Chloride 107 Carbon Dioxide 26 BUN 13 Creatinine 0.58 L Estimated GFR > 60 BUN/Creatinine Ratio 22.4 H Glucose 102 H Calcium 8.7 Total Bilirubin 0.2 AST 30 ALT 27 Alkaline Phosphatase 77 Ammonia Total Protein 7.1 Albumin 4.1 Globulin 3.0 Albumin/Globulin Ratio 1.4 Lipase Urine Color Urine Appearance Urine pH Ur Specific [place] Urine Protein Urine Glucose (UA) Urine Ketones Urine Occult Blood Urine Nitrate Urine Bilirubin Urine Urobilinogen Ur Leukocyte Esterase Urine RBC Urine WBC Ur Squamous Epith Cells Urine Bacteria Ur Culture Indicated? Vol Urine Centrifuged Ethyl Alcohol [facility] Medical History Anxiety Carpal tunnel syndrome Eczema Methamphetamine use disorder, severe Restless leg syndrome Shoulder pain Social History household members: significant other and children Smoking Status: Current every day smoker alcohol intake: former Assessment & Plan Assessment & Plan narrative: 1. Left upper quadrant pain Based on his clinical presentation, this is unlikely to be pancreatitis. His pain has been in the left upper quadrant, no epigastric pain, no radiation to his back. I do suspect some degree of enteritis along with his significant fecal load in the colon. As he was dry heaving on my arrival, will give a suppository 1st. Reglan was also ordered for his dry heaving. Will advance diet as able once his dry heaving has resolved in his bowels began moving. We will also start daily senna. May need to give additional bowel medicine as he is able to tolerate once his dry heaving resolves. Will monitor for any clinical symptoms or signs of pancreatitis. 2. Constipation As noted above. 3. Tobacco dependence Nicotine patch 4. History of methamphetamine dependence In remission 5. Anxiety Stable Code status Full Prophylaxis Low Pam score Disposition Possibly home tomorrow if clinically improving Time-Based Coding :: [TOTAL MINUTES] spent with patient and on the chart (including review of chart, obtaining history, exam, reviewing outside data, placing orders, documenting exam and treatment plan, and counseling patient) on [DATE]. Quality VTE Deep Vein Thrombosis/Pulmonary Embolism Present on Admission: No
[2024-10-22] MEDS: HYDROCODONE/ACET 5/325 TABLET 1 TAB PO (18:55)
[2024-10-23 04:00] VITALS: BP 118/66; PULSE 89; RESP 16; TEMP 36.2; O2SAT 98
[2024-10-23] MEDS: HYDROCODONE/ACET 5/325 TABLET 1 TAB PO ×3 (04:35→21:30)
[2024-10-23 05:03] LABS: Add Manual Diff / Slide Review NO; Basophils Absolute Auto 0 /uL (0-100); Basophils Percent Auto 0.1 % (0-2); Eosinophils Absolute Auto 100 /uL (0-450); Hematocrit 44.9 % (41-53); Hemoglobin 15.8 g/dL (13.5-17.5); Lymphocytes Absolute Auto 1400 /uL (1100-4500); Lymphocytes Percent Auto 23.1 % (25-40); Mean Corpuscular HGB Conc 35.2 % (30-36); Mean Corpuscular Volume 88.1 fL (80-100); Monocytes Absolute Auto 500 /uL (0-900); Monocytes Percent Auto 8.3 % (3-14); Neutrophils Absolute Auto 4200 /uL (1500-7000); Neutrophils Percent Auto 67.5 % (50-75); Platelet Count 251 X10^3/uL (150-400); Red Cell Distribution Width 12.7 % (11.6-14.8); White Blood Cell Count 6.2 X10^3/uL (4.5-11.0)
[2024-10-23 05:16] LABS: Alanine Aminotransferase 24 IU/L (<50); Albumin Globulin Ratio 1.3 (1.0-2.8); Alkaline Phosphatase 80 U/L (38-126); Aspartate Aminotransferase 28 IU/L (17-59); BUN Creatinine Ratio 17.6 (6-22); Bilirubin Total 0.6 mg/dL (0.2-1.3); Blood Urea Nitrogen 12 mg/dL (9-20); Calcium 8.8 mg/dL (8.4-10.2); Carbon Dioxide 27 mmol/L (22-32); Chloride 103 mmol/L (98-107); Estimated Glomerular Filt Rate > 60 mL/min (>60); Glucose 87 mg/dL (70-100); HEMOLYSIS < 15 (0-50); Lipase 800 U/L (23-300); Sodium 137 mmol/L (137-145)
[2024-10-23 08:00] VITALS: BP 107/65; PULSE 90; RESP 20; TEMP 36.1; O2SAT 100
[2024-10-23] MEDS: SENNOSIDES 8.6 MG TABLET 17.2 MG PO (08:24)
[2024-10-23] MEDS: NICOTINE 21 MG PATCH TOP (08:24)
--- NOTE | 2024-10-23 11:52 | CM.DPC ---
DCP COnt: Per MD, pt able to have a couple bowel movements and anticipated pt to be stable for discharge today and orders placed and then pt did not follow directives regarding easy to digest diet and had very large breakfast and now abdominal pains and returned to clear diet and discharge orders cancelled for this morning. MACY Nunn
--- NOTE | 2024-10-23 17:13 | PM.PN.1 ---
Subjective Subjective Interval history: 33-year-old male with history of anxiety, methamphetamine abuse now in remission, tobacco dependence, and restless legs syndrome presented with mild left upper quadrant pain. He did have an elevated lipase on admission (3137), but did not have any classic pancreatitis symptoms such as nausea, vomiting, epigastric pain radiating to the back. He did respond well yesterday to suppository and bowel regimen. He states he was able to eat dinner last night without much difficulty. He does state he felt slightly tight in his abdomen and full from eating but did not have any specific pain. He has not had any nausea or vomiting since my visit yesterday morning. He was hopeful to discharge home today. Exam Vital Signs (past 8 hours): Oxygen Delivery Method Room Air Oxygen Flow Rate 0 Narrative Exam Narrative: GEN: Adult male, pleasant, Alert and oriented x 3, NAD HEENT:NC, Face symmetric CHEST: Respiratory excursions symmetric, CTAB CV: RRR, no M/R/G ABD: Soft, NT/ND, BT present in all 4 quadrants, no organomegaly or masses EXTR: warm, well perfused, no C/C/E SKIN: warm and dry, no rash NEURO: Alert and oriented x 3, nonfocal Objective Labs 10/23/24 04:09 10/23/24 04:09 Labs: Laboratory Results - last 24 hr 10/23/24 04:09 WBC 6.2 RBC 5.10 Hgb 15.8 Hct 44.9 MCV 88.1 MCH 31.0 MCHC 35.2 RDW 12.7 Plt Count 251 Neut % (Auto) 67.5 Lymph % (Auto) 23.1 L [place] % (Auto) 8.3 Eos % (Auto) 1.0 L Baso % (Auto) 0.1 Neut # (Auto) 4200 Lymph # (Auto) 1400 [place] # (Auto) 500 Eos # (Auto) 100 Baso # (Auto) 0 Sodium 137 Potassium 4.0 Chloride 103 Carbon Dioxide 27 BUN 12 Creatinine 0.68 Estimated GFR > 60 BUN/Creatinine Ratio 17.6 Glucose 87 Calcium 8.8 Total Bilirubin 0.6 AST 28 ALT 24 Alkaline Phosphatase 80 Total Protein 7.0 Albumin 4.0 Globulin 3.0 Albumin/Globulin Ratio 1.3 Lipase 800 H D [facility] Medical History Anxiety Carpal tunnel syndrome Eczema Methamphetamine use disorder, severe Restless leg syndrome Shoulder pain Social History household members: significant other and children Smoking Status: Current every day smoker alcohol intake: former Assessment & Plan Assessment & Plan narrative: 1. Left upper quadrant pain Continuing to improve. Again, his clinical presentation was more consistent with constipation and enteritis than pancreatitis. He has done well with the bowel regimen which led to 3 BMs and advancing his diet slowly. Anticipate he will be able to discharge after breakfast. He is planning to eat cereal, [place] toast, and yogurt. Lipase improved and is down to 800 today. 2. Constipation Improved. Recommended he increase fiber in his diet, and add daily MiraLax. Recommended he stay hydrated. 3. Tobacco dependence Nicotine patch 4. History of methamphetamine dependence In remission 5. Anxiety Stable Code status Full Prophylaxis Low Apm score Disposition Anticipate discharge later this morning. Time-Based Coding :: [TOTAL MINUTES] spent with patient and on the chart (including review of chart, obtaining history, exam, reviewing outside data, placing orders, documenting exam and treatment plan, and counseling patient) on [DATE]. Quality VTE Deep Vein Thrombosis/Pulmonary Embolism Present on Admission: No
[2024-10-23 20:00] VITALS: BP 111/72; PULSE 79; RESP 20; TEMP 36.4; O2SAT 98
[2024-10-23] MEDS: ONDANSETRON 4 MG/2 ML INJ IV (21:21)
--- NOTE | 2024-10-23 21:35 | PC.NURSE ---
Addendum entered by Dominique Burk R.N. 10/24/24 00:01: Pt called reporting 7/10 pain, however too early for scheduled [place]. Offered pt prescribed PRN 0.5mg hydromorphone IV, but patient declined, stating I was hoping to avoid opiates. Educated pt on prescribed pain medication options. Pt declined and said he would call if he changed his mind. Plan of care ongoing. Addendum entered by Dominique Burk R.N. 10/23/24 22:33: Reassessed; pt currently sleeping, allowed to sleep. Plan of care ongoing. Original Note: NOC: Pt requested snacks, ate 1 of 2 jello cups, denies eating other food. Pt reporting 6/10 and then 7/10 epigastric pain (mostly L sided) and nausea. Administered prescribed IV 4mg Ondansetron and [place] 5/325 1 tab (see MAR). Pt reports 10 min later that nausea is subsiding but epigastric pain remains. Bowel sounds active x4, no rebound pain, no tenderness to palpation. Pt guarding and facial grimacing, states that sitting up improves pain, describes pain as tight and sharp. Plan of care ongoing.
[2024-10-24 05:09] LABS: Lipase 390 U/L (23-300)
[2024-10-24 07:00] VITALS: BP 117/63; PULSE 88; RESP 18; TEMP 36.2; O2SAT 99
--- NOTE | 2024-10-24 09:00 | PM.DS.1 ---
History of Present Illness History of Present Illness Chief complaint: Lower abdominal pain x 4 days Narrative: From H&P: 33 year old male with no reported past medical history of anxiety, Methamphetamine abuse, tobacco abuse and restless leg syndrome presents with abdominal pain. Per the patients'' report, the patient started to have abdominal pain that started about for days ago. The patient states that his pain was left upper quadrant, sharp and non-radiating. The patient denies any use of alcohol and denies any prior history of gallstones and pancreatitis. The patient also denies any trauma to his abdomen. Denies any fever, chills, dysurria, chest pain, shortness of breath, GIB, diarrhea or coughing. In our ER, the patient was hemodynamically stable. Labs were all benign except for lipast of 2864 and repeat was 3000s. CT scan however does clearly shows signs of acute pancreatitis but rather possible eneteritis. LFTs including bilirubin are normal. The patient was given IVF and IV pain medications. Discharge Providers Provider Date of admission: 10/22/24 05:45 Discharge Date: 10/24/24 Primary care physician: Luisa Larkin PA-C Consults: 10/22/24 06:[address] [facility] [place] Routine Comment: Vice President Consult needed for:: Unemployed Discharge provider: Manny Bansal MD Summary Hospital Course Discharge Diagnosis: 1. Left upper quadrant pain, resolved. Continuing to improve. Again, his clinical presentation was more consistent with constipation and enteritis than pancreatitis. He has done well with the bowel regimen which led to 3 BMs and advancing his diet slowly. Anticipate he will be able to discharge after breakfast. He is planning to eat cereal, [place] toast, and yogurt. Lipase improved and is down to 800 today. 2. Constipation, resolved. Improved. Recommended he increase fiber in his diet, and add daily MiraLax. Recommended he stay hydrated. 3. Tobacco dependence, active. Nicotine patch 4. History of methamphetamine dependence, not active. In remission 5. Anxiety, stable Hospital Course: He was admitted with constipation and this improved with a bowel program. He also had mild abdominal pain with a minimally elevated lipase. The patient was treated with a short period of bowel rest for possible pancreatitis and did improve relatively rapidly. In the day of discharge he felt at his baseline. He denies any use of alcohol, in his laboratories were otherwise unremarkable. He was felt to be stable for discharge home. Status at Discharge Cognitive/behavioral status at discharge: oriented Functional status at discharge: independent ambulation Overall status at discharge: patient is back to baseline Time Spent with Patient Time spent: Greater than 30 minutes Exam Vital Signs (past 8 hours): Oxygen Delivery Method Room Air Oxygen Flow Rate 0 Narrative Exam Narrative: NAD, alert and oriented. Fluent speech. Lungs are clear, normal rate and effort. Heart is regular, no murmur gallop or rub. Abdomen is soft, non distended. Extremities are free of edema. Objective Imaging CT scan - abdomen: Radiologist's impression: 1. Large stool burden throughout the colon, correlate for constipation. 2. Nondilated fluid-filled loops of small bowel, nonspecific and may represent enteritis. Labs 10/23/24 04:09 10/23/24 04:09 Labs: Laboratory Results - last 24 hr 10/24/24 04:24 Lipase 390 H D [facility] Medical History Eczema Anxiety Restless leg syndrome Shoulder pain Carpal tunnel syndrome Methamphetamine use disorder, severe Social History household members: significant other and children Smoking Status: Current every day smoker alcohol intake: former Discharge Assessment & Plan Assessment and Plan Assessment: 1. Left upper quadrant pain, resolved. Continuing to improve. Again, his clinical presentation was more consistent with constipation and enteritis than pancreatitis. He has done well with the bowel regimen which led to 3 BMs and advancing his diet slowly. Anticipate he will be able to discharge after breakfast. He is planning to eat cereal, [place] toast, and yogurt. Lipase improved and is down to 800 today. 2. Constipation, resolved. Improved. Recommended he increase fiber in his diet, and add daily MiraLax. Recommended he stay hydrated. Plan of Treatment: Discharge home, MiraLax on a daily basis. He was urged fine primary care and establish a follow up appointment within the next 2 weeks to have a recheck of his general status. Discharge Plan Discharge Plan Patient Disposition: Home Provider Discharge Comment: 1) Take daily Miralax (can be generic version) - if you develop loose stools, decrease to a half dose daily or a full dose every other day 2) Increase your fiber intake in your diet 3) Eat a low fat diet for the next week or so until you feel you have returned to your usual health Return to the ED for: Inability to hold down food/fluids Fevers/chills Increasing abdominal pain Discharge orders & Medications Prescriptions: New polyethylene glycol 3350 [Miralax] 17 gram/dose powder 17 g PO DAILY Qty: 238 0RF ondansetron 4 mg tablet,disintegrating 4 mg PO Q6H Qty: 20 0RF Follow up/Referrals: Luisa Larkin PA-C [Primary Care Provider] - Diet/Activity/Treatments Diet: Diet as Tolerated and Low-fat Activity: As tolerated Oxygen: N/A Visit Report/Discharge Packet Instructions: High-Fiber Diet, DI for Enteritis Stand Alone Forms: Patient Portal/API Discharge Data Primary Care Provider: Luisa Larkin Attending Provider: Tuan Tam Admit Date/Time: 10/22/24 05:45 Quality VTE Deep Vein Thrombosis/Pulmonary Embolism Present on Admission: No
[2024-10-24] MEDS: NICOTINE 21 MG PATCH TOP (09:20)
--- NOTE | 2024-10-24 10:39 | PC.NURSE ---
930 am Discharge reviewed with patient, he is eager to leave. Tolerated full liquid breakfast, denies complaints, and is up moving around in room. IV discontinued intact. Escorted out, ambulatory, (declines wheelchair ride out) to home with his girlfriend. Patient has no further questions or concerns at this time.
--- NOTE | 2024-10-24 11:03 | CM.DPC ---
DCP Discharge Home Per MD, pt tolerating diet and no abd pains and medically stable to discharge home today and no identified barriers to discharge. Per RN, discharge instructions provided and pt's SO arrived for transport home. No answer yet from TCM team since today is Thursday regarding setting up establish care appt with Provider under his [facility] HO. MACY Nunn
== END 2024-10-24 09:35 | disposition home or self-care (01) ==
LOC: ED 05:45 → AC 12:13
PROVIDERS: Family Medicine; Admitting Provider Internal Medicine; Emergency Provider Emergency Medicine; PCP Physician Assistant; Referring Provider Emergency Medicine; Visit Provider Internal Medicine
DX: K59.00 Constipation, unspecified (principal); E86.0 Dehydration; F17.200 Nicotine dependence, unspecified, uncomplicated; F15.11 Other stimulant abuse, in remission; F41.9 Anxiety disorder, unspecified; R10.12 Left upper quadrant pain; R74.8 Abnormal levels of other serum enzymes; Z59.89 Other problems related to housing and economic circumstances
CPT/HCPCS: 36415; 74177; 80053; 80320; 81001; 82140; 83690; 85025; 96361; 96374; 96375; 96376; 99284; G0378; J1171; J1885; J2405; J2765; Q9967